=== PATIENT | male | born 1990 | race Caucasian/White ===

== ENCOUNTER 2017-03-27 13:18 | Inpatient (IN) | payer SELFPAY ==
[~2017-03-27] VITALS: Ht 175.3 cm; Wt 75.0 kg
[2017-03-27 12:50] VITALS: BP 142/85; PULSE 56; RESP 13; TEMP 97.6; O2SAT 99
[~2017-03-27 13:18] MED LIST: LACTATED RINGER'S 1000 ML INJ 2,000 ML IV ONE; ONDANSETRON HCL 4 MG/2 ML VIAL IV PUSH ONE; PROPOFOL 200 MG/20 ML AMP IV ONE; ceFAZolin INJ 1,000 MG VIAL IV ONE; ePHEDrine/NS 25 MG/5 ML SYR IV ONE
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
[2017-03-27] MEDS ORDERED: SODIUM CHLORIDE 0.9% FLUSH 10 ML FLUSH IV FLUSH PRN (14:45)
[2017-03-27] MEDS ORDERED: NALOXONE HCL 0.4 MG/ML AMP IV PRN (14:45)
[2017-03-27] MEDS ORDERED: ONDANSETRON HCL 4 MG/2 ML VIAL IVP PRN (14:45)
[2017-03-27] MEDS ORDERED: MAGNESIUM HYDROXIDE SUSP 30 ML CUP PO PRN (14:45)
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
[2017-03-27 14:58] VITALS: BP 133/77; PULSE 77; RESP 19; TEMP 98.5; O2SAT 99
[2017-03-27] MEDS: SODIUM CHLOR 0.9% 1000 ML INJ 1,000 ML IV SCH ×2 (15:00→20:14)
[2017-03-27] MEDS ORDERED: fentaNYL CITRATE 250 MCG/5 ML AMP ONE (15:01)
[2017-03-27] MEDS ORDERED: MIDAZOLAM HCL 2 MG/2 ML VIAL ONE (15:01)
[2017-03-27] MEDS ORDERED: ACETAMINOPHEN 1000 MG/100 ML VIAL IV ONE (15:11)
[2017-03-27] MEDS ORDERED: INSULIN HUMAN REGULAR 1,000 UNITS/10 ML VIAL SQ PRN (15:15)
[2017-03-27] MEDS ORDERED: METOPROLOL TARTRATE 25 MG TAB PO PRN (15:15)
[2017-03-27] MEDS ORDERED: SODIUM CHLORID 0.9% 500 ML IV PRN (15:15)
[2017-03-27] MEDS ORDERED: LACTATED RINGER'S 1000 ML IV PRN (15:15)
[2017-03-27] MEDS ORDERED: POVIDONE IODINE 5% (ANTISEPSIS KIT) 4 APPLICATIONS EACH NARE PRN (15:15)
[2017-03-27] MEDS ORDERED: CHLORHEXIDINE GLUCONATE 2 % 1 PACK (2 CLOTHS) TOPICAL PRN (15:15)
[2017-03-27] MEDS ORDERED: methylPREDNISolone SOD SUCC 40 MG/1 ML VIAL ONE (15:18)
[2017-03-27] MEDS ORDERED: BALANCED SALT SOLN OPHT IRRIG 15 ML BTL ONE (15:49)
[2017-03-27] MEDS ORDERED: TOBRAMYCIN 0.3%/DEXAMETHASONE 0.1% OPHT SUSP 5 ML BTL ONE (15:55)
[2017-03-27] MEDS ORDERED: TOBRAMYCIN SULFATE 0.3% OPTH OINT 3.5 GM TUBE ONE (17:34)
--- NOTE | 2017-03-27 17:50 | PD.OP ---
Operative Report Date of Surgery: Mar 27, 2017 Preoperative Diagnosis: (1) Ruptured globe of left eye Postoperative Diagnosis: (1) Ruptured globe of left eye Procedure: ruptured globe repair left eye Anesthesia: General Surgeon: Julee Soto Loan Manager(s): none Operation and Findings: The patient was consented and taken to the operating room. He was put under general anesthesia and prepped and draped in the usual sterile fashion for ophthalmic surgery. A wire lid speculum was placed in the left eye. There was noted to be an 11 mm full thickness corneal laceration from 3 to 9 o'clock with a completely shallow anterior chamber. A 360 degree conjunctival peritomy was performed to fully explore the eye to make sure the laceration did not extend into the sclera. Tobradex solution was used to irrigate the wound. 14 10-0 nylon interrupted sutured were placed to close the laceration. Ocucoat was placed into the anterior chamber along with BSS to help form it. The wound was found to be watertight. 7-0 Vicryl suture was placed to close the conjunctiva. Tobrex ointment and a patch and shield were placed over the left eye. Patient tolerated the procedure well and was sent to PACU. Julee Soto MD Mar 27, 2017 17:50
--- NOTE | 2017-03-27 17:53 | HHI.PR ---
Subjective Remarks s/p ruptured globe repair of left eye. Pt currently in PACU. Objective Vital Signs Date Time Temp Pulse Resp B/P Pulse Ox O2 Delivery O2 Flow Rate FiO2 03/27/17 14:58 98.5 77 19 133/77 99 03/27/17 12:50 97.6 56 13 142/85 99 Objective Remarks Patch over left eye Assessment and Plan Problem List: (1) Ruptured globe of left eye Status: Acute Plan: s/p ruptured globe repair. Keep eye shield on left eye. IV Vanc/Ancef. Pain control. Pt ok to be discharged in the AM. Follow up at office tomorrow at 1pm. [address] [facility]. [phone]. Julee Soto MD Mar 27, 2017 17:53
[2017-03-27] MEDS ORDERED: DO NOT ADM ANY ANTICOAGULANT DRUGS PRN (18:00)
[2017-03-27] MEDS ORDERED: *morphine SULFATE 8 MG/ML PERIprocedure ONLY ONE (18:22)
[2017-03-27] MEDS: MORPHINE SULFATE 4 MG/ML INJ IV PUSH PRN (20:11)
[2017-03-27] MEDS: DOCUSATE SODIUM 50 MG/SENNA 8.6 MG TAB PO SCH (20:12)
[2017-03-27] MEDS: SODIUM CHLORIDE 0.9% FLUSH 10 ML FLUSH IV FLUSH SCH (20:13)
[2017-03-27 20:30] VITALS: BP 120/63; PULSE 65; RESP 16; TEMP 98.7; O2SAT 97
[2017-03-28] VITALS (10 sets, daily range): BP systolic 121–146; BP diastolic 66–91; PULSE 50–80; RESP 14–20; TEMP 96–99.1; O2SAT 94–100
[2017-03-28] MEDS: MORPHINE SULFATE 4 MG/ML INJ IV PUSH PRN ×5 (00:25→20:37)
[2017-03-28] MEDS: ACETAMINOPHEN 325 MG TAB PO PRN ×2 (02:42→08:02)
[2017-03-28] MEDS: DOCUSATE SODIUM 50 MG/SENNA 8.6 MG TAB PO SCH ×2 (08:03→20:35)
[2017-03-28] MEDS: SODIUM CHLORIDE 0.9% FLUSH 10 ML FLUSH IV FLUSH SCH ×2 (08:03→20:36)
[2017-03-28] MEDS ORDERED: oxyCODONE/ACETAMINOPHEN 5 MG/325 MG TAB PO PRN ×2 (09:30)
--- NOTE | 2017-03-28 10:17 | RADRPT ---
EXAM DATE/TIME: 03/28/2017 10:01 [facility] COMPARISON: No previous studies available for comparison. INDICATIONS : Stroke alert, left sided facial droop and general numbness. RADIATION DOSE: 56.35 CTDIvol (mGy) This report was called to Dr. De Santiago at 10: 10 Given to Stroke nurse at 10 12 MEDICAL HISTORY : Non-responsive. SURGICAL HISTORY : Non-responsive. ENCOUNTER: Initial ACUITY: 1 day PAIN SCALE: Non-responsive LOCATION: Bilateral head TECHNIQUE: Multiple contiguous axial images were obtained of the head. Using automated exposure control and adj ustment of the mA and/or kV according to patient size, radiation dose was kept as low as reasonably a chievable to obtain optimal diagnostic quality images. FINDINGS: CEREBRUM: The ventricles are normal for age. No evidence of midline shift, mass lesion, hemorrhage or acute in farction. No extra-axial fluid collections are seen. POSTERIOR FOSSA: The cerebellum and brainstem are intact. The 4th ventricle is midline. The cerebellopontine angle i s unremarkable. EXTRACRANIAL: The visualized portion of the orbits is intact. SKULL: The calvaria is intact. No evidence of skull fracture. CONCLUSION: Negative. MRI would be of benefit.. Shabbir Garza MD FACR on March 28, 2017 at 10:10 Board Certified Radiologist. This report was verified electronically.
[2017-03-28 10:28] LABS: I-STAT POTASSIUM 3.8 MMOL/L (3.5-4.9); I-STAT SODIUM 137 MMOL/L (138-146)
[2017-03-28 10:29] LABS: AUTOMATED NEUTROPHIL # 9.5 TH/MM3 (1.8-7.7); BASOPHIL # 0.1 TH/MM3 (0-0.2); EOSINOPHIL % 0.3 % (0.0-4.0); HEMATOCRIT 44.7 % (39.0-51.0); HEMO FLAGS DIFF FINAL; LYMPH % 28.3 % (9.0-44.0); LYMPHOCYTE # 4.1 TH/MM3 (1.0-4.8); MEAN CELL VOLUME 90.9 FL (80.0-100.0); MEAN CORPUSCULAR HEMOGLOBIN 31.2 PG (27.0-34.0); MEAN CORPUSCULAR HGB CONC 34.3 % (32.0-36.0); MONO % 5.3 % (0.0-8.0); NEUT % 65.1 % (16.0-70.0); PLATELET COUNT 221 TH/MM3 (150-450); RED BLOOD COUNT 4.91 MIL/MM3 (4.50-5.90); RED CELL DISTRIBUTION WIDTH 13.7 % (11.6-17.2); WHITE BLOOD COUNT 14.6 TH/MM3 (4.0-11.0)
[2017-03-28 10:37] LABS: APTT (PATIENT) 29.7 SEC (24.3-30.1); INTERNATIONAL NORMALIZED RATIO 1.1 RATIO
[2017-03-28 10:45] LABS: CREATINE KINASE 126 U/L (39-308)
[2017-03-28] MEDS: SODIUM CHLOR 0.9% 1000 ML INJ 1,000 ML IV SCH (11:00)
--- NOTE | 2017-03-28 11:00 | EKG ---
Date Performed: 03/28/2017 Time Performed: 10:19:11 PTAGE: 27 years EKG: SINUS BRADYCARDIA WITH SHORT IA INTERVAL BORDERLINE ECG NO PREVIOUS TRACING DOCTOR: Moris Appiah Interpretating Date/Time 03/28/2017 10:58:28
--- NOTE | 2017-03-28 11:06 | HHI.PR ---
Subjective Remarks Stroke alert was called I was at patient's bedside during the stroke alert. Per nurse patient has been in pain and she gave him his Percocet then patient passed out for second then woke up with questionable left-sided weakness with left facial droop. Patient told me that he feels tingling all over his body and weakness all over his body. He denies any focal neurological deficits. Denied any headache. Denies any visual changes or nausea/ vomiting. His mom is at the bedside and stated that patient has been in severe pain and has been convulsing because of the pain. She stated that during his convulsive like activity patient was telling his mom that the pain was not controlled. His mother stated that patient was in pain all night and that the morphine knocked him out but then he will wake up in extreme pain. When I interviewed patient he was very anxious. Mother's upset because pain not controlled and stated that she thinks all this happened because of pain. No family history of early stroke. Objective Vitals Vital Signs Date Time Temp Pulse Resp B/P Pulse Ox O2 Delivery O2 Flow Rate FiO2 03/28/17 09:54 100 2.00 03/28/17 09:54 100 Nasal Cannula 2.00 03/28/17 09:02 18 03/28/17 08:00 99.0 56 14 121/71 98 03/28/17 03:40 97.0 55 16 127/85 99 03/28/17 00:10 97.8 57 15 136/66 97 03/27/17 20:30 98.7 65 16 120/63 97 03/27/17 18:30 76 16 130/69 96 Room Air 03/27/17 18:15 77 15 117/58 97 Room Air 03/27/17 18:00 71 14 137/67 98 Room Air 03/27/17 17:48 97.8 70 14 145/74 100 Simple Mask 10 03/27/17 14:58 98.5 77 19 133/77 99 03/27/17 12:50 97.6 56 13 142/85 99 I/O 03/27/17 03/27/17 03/27/17 03/28/17 03/28/17 03/28/17 07:00 15:00 23:00 07:00 15:00 23:00 Intake Total 1840 ml 1069 ml Output Total 0 ml 500 ml Balance 1840 ml 569 ml Intake Oral 240 ml 240 ml IV Total 300 ml 829 ml Other 1300 ml Output Urine Total 0 ml 500 ml # Bowel Movements 0 0 Result Diagram: 03/28/17 1012 Objective Remarks GENERAL: in NAD SKIN: Warm and dry. HEAD: Normocephalic. EYES: Left eye had an eye patch on it. Patient did not want us to touch the eye patch due to pain. He did have a slight left facial droop when I asked the smile he wouldn't smile. When I asked him if he is not small because the pain he not his head yes. NECK: Supple, trachea midline. No JVD or lymphadenopathy. CARDIOVASCULAR: Regular rate and rhythm without murmurs, gallops, or rubs. RESPIRATORY: Breath sounds equal bilaterally. No accessory muscle use. GASTROINTESTINAL: Abdomen soft, non-tender, nondistended. MUSCULOSKELETAL: No cyanosis, or edema. Initially patient had no effort when I told patient that he needs to put effort into examination because I need to determine if he has stroke he had 5 out of 5 upper and lower she restraint. Sensation grossly intact. BACK: Nontender without obvious deformity. No CVA tenderness. NEURO: AAO X 3. Sensation grossly intact. Unable to assess coordination due to patient being very anxious. Patient went down for a stat CT scan. Medications and IVs Current Medications Morphine Sulfate 2 mg 2 mg Q3H PRN IV PUSH pain 1-10 Last administered on 03:22; Start 03/27/17 at 15:00 Sodium Chloride (NS 1000 ml Inj) 1,000 ml @ 100 mls/hr Q10H IV Last administered on 03/27/17 20:14; Start 03/27/17 at 15:00; Stop 03/28/17 at 10:25; Status DC Sodium Chloride (NS Flush) 2 ml UNSCH PRN IV FLUSH FLUSH AFTER USING IV ACCESS ; Start 03/27/17 at 14:45 Sodium Chloride (NS Flush) 2 ml BID IV FLUSH Last administered on 03/27/17 20: 13; Start 03/27/17 at 21:00 Acetaminophen (Tylenol) 650 mg Q4H PRN PO TEMP > 100.4 Last administered on 03/28 08:02; Start 03/27/17 at 14:45 Ondansetron HCl (Zofran Inj) 4 mg Q6H PRN IVP NAUSEA OR VOMITING; Start at 14:45 Naloxone HCl (Narcan Inj) 0.4 mg UNSCH PRN IV SEE LABEL COMMENTS; Start at 14:45 Senna/Docusate Sodium (Ellen-Colace) 1 tab BID PO Last administered on 03/28/17 08:03; Start 03/27/17 at 21:00 Magnesium Hydroxide (Milk Of Magnesia Liq) 30 ml Q12H PRN PO MILD - MODERATE CONSTIPATION Last administered on 03/27/17 20:12; Start 03/27/17 at 14:45 Midazolam HCl (Versed Inj) 2 mg STK-MED ONCE .ROUTE ; Start 03/27/17 at 15:01; Stop 03/27/17 at 15:02; Status DC Fentanyl Citrate 250 mcg 250 mcg STK-MED ONCE .ROUTE ; Start 03/27/17 at 15:01; Stop 03/27/17 at 15:02; Status DC Lactated Ringer's 1,000 ml @ 30 mls/hr Q24H PRN IV SEE LABEL COMMENTS; Start at 15:15; Stop 03/28/17 at 10:25; Status DC Sodium Chloride (NS 500 ml Inj) 500 ml @ 30 mls/hr [id number] PRN IV SEE LABEL COMMENTS; Start 03/27/17 at 15:15; Stop 03/30/17 at 15:14 Metoprolol Tartrate (Lopressor) 25 mg TANK FURNACE OPERATOR PRN PO SEE LABEL COMMENTS; Start 03/27/17 at 15:15; Stop 03/30/17 at 15:14 Povidone Iodine (Betadine 5% Antisepsis Kit) 1 applic TANK FURNACE OPERATOR PRN EACH NARE SEE LABEL COMMENTS; Start 03/27/17 at 15:15; Stop 03/30/17 at 15:14 Chlorhexidine Gluconate (Chlorhexidine 2% Cloth) 3 pack TANK FURNACE OPERATOR PRN TOPICAL SEE LABEL COMMENTS; Start 03/27/17 at 15:15; Stop 03/30/17 at 15:14 Insulin Human Regular (NovoLIN R INJ) See Protocol Table ... TANK FURNACE OPERATOR PRN SQ SEE PROTOCOL TABLE; Start 03/27/17 at 15:15; Stop 03/30/17 at 15:14 Acetaminophen (Ofirmev Inj) 1,000 mg STK-MED ONCE IV ; Start 03/27/17 at 15:11; Stop 03/27/17 at 15:12; Status DC Methylprednisolone Sodium Succinate (SoluMEDROL INJ) 40 mg STK-MED ONCE .ROUTE ; Start 03/27/17 at 15:18; Stop 03/27/17 at 15:19; Status DC Balanced Salt Solution (Bss Opth Soln) 30 applic STK-MED ONCE .ROUTE Last administered on 03/27/17 15:49; Start 03/27/17 at 15:49; Stop 03/27/17 at 15:50; Status DC Tobramycin/ Dexamethasone (Tobradex Opth Susp) 100 drop STK-MED ONCE .ROUTE Last administered on 03/27/17 16:04; Start 03/27/17 at 15:55; Stop 03/27/17 at 15: 56; Status DC Tobramycin Sulfate (Tobrex 0.3% Opth Oint) 3.5 applic STK-MED ONCE .ROUTE Last administered on 03/27/17 17:36; Start 03/27/17 at 17:34; Stop 03/27/17 at 17:35; Status DC Miscellaneous Information ALL NURSING DEPARTME... UNSCH PRN .XX SEE LABEL COMMENTS; Start 03/27/17 at 18:00; Stop 03/28/17 at 17:59 Morphine Sulfate (*morphine INJ PERIprocedure ONLY) 8 mg STK-MED ONCE .ROUTE Last administered on 03/27/17 18:23; Start 03/27/17 at 18:22; Stop 03/27/17 at 18: 23; Status DC Oxycodone/ Acetaminophen (Percocet 5-325 Mg) 1 tab Q6H PRN PO pain 1-6; Start 03/28/17 at 09:30 Oxycodone/ Acetaminophen 2 tab 2 tab Q6H PRN PO pain 7-10 Last administered on 03/28/17 09:37; Start 03/28/17 at 09:30 Sodium Chloride (NS 1000 ml Inj) 1,000 ml @ 70 mls/hr [id number] IV ; Start at 11:00 A/P Assessment and Plan 27-year-old male with foreign object to his left eye Syncope/questionable neurological symptoms 03/28 -Symptoms seems more due to hyperventilation secondary to uncontrolled pain. -Stroke alert was called. Dealt with neurologist Dr. Reyes. Patient had a stat CT scan of the head that was negative. Dr. Garza asked for stat MRI in which he spoke to Dr. Reyes I d/w Dr. Reyes over phone and on by patient's room. will wait for MRI. Labs were obtained and reviewed mild leukocytosis most likely secondary to to an inflammatory response from surgery. -We'll transfer patient to neurology floor with telemetry. -Treatment pending MRI. Uncontrol left eye pain -Secondary to recent surgery. -Due to recent event will need to hold off on pain medication because this will present proper examination by causing excessive sedation. -once cleared of neurological etiology can resume pain medication. Will adjust accordingly. Ruptured globe of the left eye -Found on CT scan. -s/p ruptured globe repair. -Patient was scheduled for follow-up appointment with Dr. Soto today at 1:00 PM. Patient's nurse was told to call Dr. Soto to notify Dr. Soto of the event and that he will require continual hospitalization. DVTs prophylaxis -low risk none indicated. Discharge Planning Pending stat MRI. Patient will require continual hospitalization due to recent events. Adrienne Hernandez MD Mar 28, 2017 11:06
[2017-03-28] MEDS ORDERED: GADODIAMIDE PF 287 MG/ML 20 ML VIAL (for RAD MRI) IV ONE (12:31)
--- NOTE | 2017-03-28 12:32 | RADRPT ---
EXAM DATE/TIME: 03/28/2017 10:40 [facility] COMPARISON: No previous studies available for comparison. INDICATIONS : Stroke alert. Bilateral extremity weakness with left sided facial droop. CONTRAST: 20 cc Omniscan (gadodiamide) IV MEDICAL HISTORY : None. SURGICAL HISTORY : Left eye debriedment. ENCOUNTER: Initial ACUITY: 1 day PAIN SCORE: 8/10 LOCATION: Left eye Percent stenosis is calculated using the diameter of the stenotic region over the diameter of the nor mal distal internal carotid artery. TECHNIQUE: Bolus infused MRA of the extracranial circulation was performed using a neurovascular coil. Post pro cessing was performed including rotating subvolume maximum intensity projections of each carotid blake ry, rotating full volume maximum intensity projections of both carotid arteries, sagittal and coronal sliding thin slab reformations of each carotid artery, and left oblique sliding thin slab reformatio n through the aortic arch to include the origin of the arch branch vessels. FINDINGS: AORTIC ARCH: There is a three vessel origin of the great vessels from the aorta. No evidence of ostial narrowing. RIGHT CAROTID: The common carotid artery is intact. The carotid bulb has a normal configuration without ulceration or narrowing. The internal carotid artery lumen is smooth without stenosis. The external carotid ar serg is intact. LEFT CAROTID: The common carotid artery is intact. The carotid bulb has a normal configuration without ulceration or narrowing. The internal carotid artery lumen is smooth without stenosis. The external carotid ar serg is intact. VERTEBRALS: The vertebral arteries have a symmetric diameter. No stenotic lesions are seen. CONCLUSION: Negative for hemodynamically significant stenosis. Shabbir Garza MD FACR on March 28, 2017 at 12:29 Board Certified Radiologist. This report was verified electronically.
--- NOTE | 2017-03-28 12:32 | RADRPT ---
EXAM DATE/TIME: 03/28/2017 10:40 [facility] COMPARISON: No previous studies available for comparison. INDICATIONS : Stroke alert. Bilateral extremity weakness with left sided facial droop. MEDICAL HISTORY : None. SURGICAL HISTORY : Left eye debriedment. ENCOUNTER: Initial ACUITY: 1 day PAIN SCORE: 8/10 LOCATION: Left eye Please note a normal MRA of the brain does not entirely exclude the possibility of a small aneurysm, nor the possibility of distal intracranial vessel disease. TECHNIQUE: 3D time of flight MRA was performed. Source images, multiplanar STS MIP, and 3D volume MIP reconstru ctions were reviewed. FINDINGS: There is excellent visualization of the major intracranial arteries out to the second-order branch ve ssels. There is no evidence for aneurysm, vessel truncation or stenosis, and no evidence for vascula r malformation. CONCLUSION: Negative for aneurysm or major branch vessel occlusion.. Shabbir Garza MD FACR on March 28, 2017 at 12:30 Board Certified Radiologist. This report was verified electronically.
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
--- NOTE | 2017-03-28 13:12 | RADRPT ---
EXAM DATE/TIME: 03/28/2017 10:40 [place] COMPARISON: No previous studies available for comparison. INDICATIONS : Stroke alert. Bilateral extremity weakness with left sided facial droop. MEDICAL HISTORY : None. SURGICAL HISTORY : Left eye debridement ENCOUNTER: Initial ACUITY: 1 day PAIN SCORE: 8/10 LOCATION: Left eye TECHNIQUE: Multiplanar, multisequence MRI of the brain was performed without contrast. FINDINGS: There is no restricted diffusion evident. Minimal periventricular white matter changes are evident. I do not see evidence for significant demyelinating process. Ventricular size is appropriate. There are no extraaxial fluid collections appreciated. Posterior fossa is unremarkable. There is no parenchymal hemorrhage. The orbits and nasal sinuses are unremarkable. There is no mastoid disease. CONCLUSION: Negative MRI of the brain. Shabbir Garza MD FACR on March 28, 2017 at 12:19 Board Certified Radiologist. This report was verified electronically.
[2017-03-28] MEDS ORDERED: ACETAMINOPHEN/HYDROcodone 325 MG/5 MG TAB PO PRN (13:15)
[2017-03-28] MEDS: MORPHINE SULFATE 15 MG CONTROLLED RELEASE TAB PO SCH ×2 (15:11→20:36)
[2017-03-28] MEDS ORDERED: ZOLPIDEM TARTRATE 10 MG TAB PO PRN (16:30)
--- NOTE | 2017-03-28 20:05 | HHI.PR ---
Subjective Remarks 1 day s/p ruptured globe repair of left eye. Pt states that pain has been uncontrolled. Sharp and throbbing pain kept him up all night despite his pain meds. Stroke alert called earlier today - CT/MRI normal. Objective Vital Signs Date Time Temp Pulse Resp B/P Pulse Ox O2 Delivery O2 Flow Rate FiO2 03/28/17 16:16 16 03/28/17 15:45 99.1 78 20 125/82 96 03/28/17 12:18 18 03/28/17 12:00 96.6 50 14 139/91 99 03/28/17 09:54 100 2.00 03/28/17 09:54 100 Nasal Cannula 2.00 03/28/17 09:51 97.1 65 18 145/79 100 03/28/17 09:42 96.0 64 18 146/73 100 03/28/17 09:02 18 03/28/17 08:00 99.0 56 14 121/71 98 03/28/17 03:40 97.0 55 16 127/85 99 03/28/17 00:10 97.8 57 15 136/66 97 03/27/17 20:30 98.7 65 16 120/63 97 I/O 03/27/17 03/27/17 03/27/17 03/28/17 03/28/17 03/28/17 07:00 15:00 23:00 07:00 15:00 23:00 Intake Total 1840 ml 1069 ml Output Total 0 ml 500 ml Balance 1840 ml 569 ml Intake Oral 240 ml 240 ml IV Total 300 ml 829 ml Other 1300 ml Output Urine Total 0 ml 500 ml # Bowel Movements 0 0 Result Diagram: 03/28/17 1012 Objective Remarks Va sc at near OS HM EOM full OU CVF full OD, unable OS Pupils 2-1 OD, no view OS IOP OS 32 mm Hg Anterior exam OD - normal eyelid, C/S W&Q, K clear, AC deep, pupil round, lens clear OS - eyelid edema, ANTONIO with sutures intact, corneal sutures intact - [place] neg , AC deep Assessment and Plan Problem List: (1) Ruptured globe of left eye Status: Acute Plan: 1 day s/p ruptured globe repair. Keep eye shield on left eye. IV Moxifloxacin daily. Diamox 500mg q4h for increased IOP. Pain control. Start Vigamox QID OS, Prednisolone QID OS. Pt ok to be discharged in the AM. Follow up at office tomorrow at 1pm. [address] [facility]. [phone]. Julee Soto MD Mar 28, 2017 20:05
[2017-03-28] MEDS: MOXIFLOXACIN 0.5% OPHT SOLN 3 ML BTL LEFT EYE SCH (20:35)
[2017-03-28] MEDS: prednisoLONE ACETATE 1% OPHT SUSP 5 ML BTL LEFT EYE SCH (20:35)
[2017-03-28] MEDS: acetaZOLAMIDE SEQUELS 500 MG SUSTAINED RELEASE CAP PO SCH (20:36)
[2017-03-28] MEDS ORDERED: MOXIFLOXACIN 400 MG PREMIX 250 ML IV SCH (21:00)
[2017-03-28] MEDS: ACETAMINOPHEN/HYDROcodone 325 MG/5 MG TAB PO PRN (22:10)
[2017-03-29] MEDS: MORPHINE SULFATE 4 MG/ML INJ IV PUSH PRN ×2 (00:30→11:33)
[2017-03-29] MEDS: acetaZOLAMIDE SEQUELS 500 MG SUSTAINED RELEASE CAP PO SCH ×2 (00:35→03:50)
[2017-03-29] MEDS: SODIUM CHLOR 0.9% 1000 ML INJ 1,000 ML IV SCH (00:37)
[2017-03-29 00:45] VITALS: BP 120/88; PULSE 91; RESP 19; TEMP 97.9; O2SAT 95
[2017-03-29] MEDS: ACETAMINOPHEN/HYDROcodone 325 MG/5 MG TAB PO PRN ×2 (03:51→08:17)
[2017-03-29 05:15] VITALS: BP 115/68; PULSE 88; RESP 18; TEMP 98; O2SAT 100
[2017-03-29 08:00] VITALS: PULSE 50
[2017-03-29] MEDS: SODIUM CHLORIDE 0.9% FLUSH 10 ML FLUSH IV FLUSH SCH (08:15)
[2017-03-29] MEDS: MORPHINE SULFATE 15 MG CONTROLLED RELEASE TAB PO SCH (08:16)
[2017-03-29] MEDS: prednisoLONE ACETATE 1% OPHT SUSP 5 ML BTL LEFT EYE SCH ×2 (08:17→11:34)
[2017-03-29] MEDS: DOCUSATE SODIUM 50 MG/SENNA 8.6 MG TAB PO SCH (08:17)
[2017-03-29] MEDS: MOXIFLOXACIN 0.5% OPHT SOLN 3 ML BTL LEFT EYE SCH ×2 (08:17→11:35)
--- NOTE | 2017-03-29 08:22 | HHI.PR ---
Subjective Subjective Comments No acute neuro events reported headache/left eye pain little less severe mri/a normal ophtalmo management, will follow prn Active Medications Current Medications Medications (Trade) Dose Ordered Sig/Genaro Route Start Time Stop Time Status Last Admin (NS Flush) 2 ml UNSCH PRN IV FLUSH 03/27/17 14:45 (NS Flush) 2 ml BID IV FLUSH 03/27/17 21:00 03/28/17 20:36 (Tylenol) 650 mg Q4H PRN PO 03/27/17 14:45 03/28/17 08:02 (Zofran Inj) 4 mg Q6H PRN IVP 03/27/17 14:45 (Narcan Inj) 0.4 mg UNSCH PRN IV 03/27/17 14:45 (Ellen-Colace) 1 tab BID PO 03/27/17 21:00 03/29/17 08:17 Magnesium Hydroxide 30 ml 30 ml Q12H PRN PO 03/27/17 14:45 03/27/17 20:12 Sodium Chloride 500 ml @ 30 mls/hr [id number] PRN IV 03/27/17 15:15 03/30/17 15:14 (NS 1000 ml Inj) 1,000 ml @ 70 mls/hr [id number] IV 03/28/17 11:00 03/29/17 00:37 ([place] 5-325 Mg) 1 tab Q4H PRN PO 03/28/17 13:15 ([place] 5-325 Mg) 2 tab Q4H PRN PO 03/28/17 13:15 03/29/17 08:17 (Oramorph Sr) 15 mg Q12HR PO 03/28/17 14:45 03/29/17 08:16 (Ambien) 10 mg HS PRN PO 03/28/17 16:30 03/28/17 17:16 (Vigamox 0.5% Opht Soln) 1 drop QID LEFT EYE 03/28/17 21:00 03/29/17 08:17 Prednisolone Acetate 1 drop 1 drop QID LEFT EYE 03/28/17 21:00 03/29/17 08:17 (Avelox 400 Mg Premix) 250 ml @ 250 mls/hr Q24H IV 03/28/17 21:00 03/28/17 20:35 (Morphine Inj) 2 mg Q4HR PRN IV PUSH 03/29/17 00:27 03/29/17 00:30 (Diamox Sequels) 500 mg BID PO 03/29/17 09:00 03/29/17 08:17 Allergies Allergies Coded Allergies Cipro (Verified Allergy, Severe, 03/27/17) Penicillin (Verified Allergy, Mild, 03/27/17) Exam I&O / VS 03/28/17 03/28/17 03/29/17 15:00 23:00 07:00 Intake Total 975 ml Balance 975 ml Intake Oral 975 ml # Voids 1 # Bowel Movements 0 Vital Signs Date Time Temp Pulse Resp B/P Pulse Ox O2 Delivery O2 Flow Rate FiO2 03/29/17 00:45 97.9 91 19 120/88 95 03/28/17 23:00 68 03/28/17 21:00 98.0 80 17 124/74 94 03/28/17 16:16 16 03/28/17 15:45 99.1 78 20 125/82 96 03/28/17 12:18 18 03/28/17 12:00 96.6 50 14 139/91 99 03/28/17 09:54 100 2.00 03/28/17 09:54 100 Nasal Cannula 2.00 03/28/17 09:51 97.1 65 18 145/79 100 03/28/17 09:42 96.0 64 18 146/73 100 03/28/17 09:02 18 Objective Micro and Labs Laboratory Tests Test 03/28/17 03/28/17 10:12 12:52 White Blood Count 14.6 Red Blood Count 4.91 Hemoglobin 15.3 Bedside Hemoglobin 15.6 Hematocrit 44.7 Bedside Hematocrit 46.0 Mean Corpuscular Volume 90.9 Mean Corpuscular Hemoglobin 31.2 Mean Corpuscular Hemoglobin 34.3 Concent Red Cell Distribution Width 13.7 Platelet Count 221 Mean Platelet Volume 9.0 Neutrophils (%) (Auto) 65.1 Lymphocytes (%) (Auto) 28.3 Monocytes (%) (Auto) 5.3 Eosinophils (%) (Auto) 0.3 Basophils (%) (Auto) 1.0 Neutrophils # (Auto) 9.5 Lymphocytes # (Auto) 4.1 Monocytes # (Auto) 0.8 Eosinophils # (Auto) 0.0 Basophils # (Auto) 0.1 CBC Comment DIFF FINAL Differential Comment Prothrombin Time 12.0 Prothromb Time International 1.1 Ratio Activated Partial 29.7 Thromboplast Time Fibrinogen 270 Bedside Sodium 137 Bedside Potassium 3.8 Bedside Chloride 101 Bedside Blood Urea Nitrogen 12 Bedside Creatinine 1.1 Bedside Glucose 89 Total Creatine Kinase 126 Troponin I LESS THAN 0.02 Blood Type A POSITIVE A POSITIVE Antibody Screen NEGATIVE Cheyenne Castillo MD Mar 29, 2017 08:22
[2017-03-29 08:29] VITALS: BP 127/68; PULSE 59; RESP 18; TEMP 97.4; O2SAT 100
[2017-03-29] MEDS ORDERED: acetaZOLAMIDE SEQUELS 500 MG SUSTAINED RELEASE CAP PO SCH (09:00)
[2017-03-29] MEDS ORDERED: PILL SPLITTER OTHER PRN (09:45)
--- NOTE | 2017-03-29 09:57 | HHI.PR ---
Subjective Remarks Follow-up for intractable pain of the left eye. Patient continues to be very tearful due to the pain. He stated that pain medication helped a little bit but he continues have pain. Patient stated that his pain is 8 out of 10 right now. I spoke to patient regards to his pain and discharge. He stated that he will speak to his mom in regards to being discharged today. Patient denied any episodes of passing out, headache, or focal neurological deficit. Objective Vitals Vital Signs Date Time Temp Pulse Resp B/P Pulse Ox O2 Delivery O2 Flow Rate FiO2 03/29/17 08:29 97.4 59 18 127/68 100 03/29/17 08:00 50 03/29/17 05:15 98.0 88 18 115/68 100 03/29/17 00:45 97.9 91 19 120/88 95 03/28/17 23:00 68 03/28/17 21:00 98.0 80 17 124/74 94 03/28/17 16:16 16 03/28/17 15:45 99.1 78 20 125/82 96 03/28/17 12:18 18 03/28/17 12:00 96.6 50 14 139/91 99 I/O 03/28/17 03/28/17 03/28/17 03/29/17 03/29/17 03/29/17 07:00 15:00 23:00 07:00 15:00 23:00 Intake Total 1069 ml 975 ml 1000 ml Output Total 500 ml Balance 569 ml 975 ml 1000 ml Intake Oral 240 ml 975 ml 1000 ml IV Total 829 ml Output Urine Total 500 ml # Voids 1 3 # Bowel Movements 0 0 0 Result Diagram: 03/28/17 1012 Objective Remarks GENERAL: in NAD SKIN: Warm and dry. HEAD: Normocephalic. EYES: Left eye had an eye patch on it. Patient did not want us to touch the eye patch due to pain. No left facial droop noted. NECK: Supple, trachea midline. No JVD or lymphadenopathy. CARDIOVASCULAR: Regular rate and rhythm without murmurs, gallops, or rubs. RESPIRATORY: Breath sounds equal bilaterally. No accessory muscle use. GASTROINTESTINAL: Abdomen soft, non-tender, nondistended. MUSCULOSKELETAL: No cyanosis, or edema. 5 out of 5 lower and upper strandy strength. BACK: Nontender without obvious deformity. No CVA tenderness. NEURO: AAO X 3. Sensation grossly intact. Coordination is grossly intact. Medications and IVs Current Medications Morphine Sulfate 2 mg 2 mg Q3H PRN IV PUSH pain 1-10 Last administered on 12:13; Start 03/27/17 at 15:00; Stop 03/28/17 at 16:26; Status DC Sodium Chloride (NS 1000 ml Inj) 1,000 ml @ 100 mls/hr Q10H IV Last administered on 03/27/17 20:14; Start 03/27/17 at 15:00; Stop 03/28/17 at 10:25; Status DC Sodium Chloride (NS Flush) 2 ml UNSCH PRN IV FLUSH FLUSH AFTER USING IV ACCESS ; Start 03/27/17 at 14:45 Sodium Chloride (NS Flush) 2 ml BID IV FLUSH Last administered on 03/28/17 20: 36; Start 03/27/17 at 21:00 Acetaminophen (Tylenol) 650 mg Q4H PRN PO TEMP > 100.4 Last administered on 03/28 08:02; Start 03/27/17 at 14:45 Ondansetron HCl (Zofran Inj) 4 mg Q6H PRN IVP NAUSEA OR VOMITING; Start at 14:45 Naloxone HCl (Narcan Inj) 0.4 mg UNSCH PRN IV SEE LABEL COMMENTS; Start at 14:45 Senna/Docusate Sodium (Ellen-Colace) 1 tab BID PO Last administered on 03/29/17 08:17; Start 03/27/17 at 21:00 Magnesium Hydroxide (Milk Of Magnesia Liq) 30 ml Q12H PRN PO MILD - MODERATE CONSTIPATION Last administered on 03/27/17 20:12; Start 03/27/17 at 14:45 Midazolam HCl (Versed Inj) 2 mg STK-MED ONCE .ROUTE ; Start 03/27/17 at 15:01; Stop 03/27/17 at 15:02; Status DC Fentanyl Citrate 250 mcg 250 mcg STK-MED ONCE .ROUTE ; Start 03/27/17 at 15:01; Stop 03/27/17 at 15:02; Status DC Lactated Ringer's 1,000 ml @ 30 mls/hr Q24H PRN IV SEE LABEL COMMENTS; Start at 15:15; Stop 03/28/17 at 10:25; Status DC Sodium Chloride (NS 500 ml Inj) 500 ml @ 30 mls/hr [id number] PRN IV SEE LABEL COMMENTS; Start 03/27/17 at 15:15; Stop 03/30/17 at 15:14 Metoprolol Tartrate (Lopressor) 25 mg TAXI PROPRIETOR PRN PO SEE LABEL COMMENTS; Start 03/27/17 at 15:15; Stop 03/30/17 at 15:14 Povidone Iodine (Betadine 5% Antisepsis Kit) 1 applic TAXI PROPRIETOR PRN EACH NARE SEE LABEL COMMENTS; Start 03/27/17 at 15:15; Stop 03/30/17 at 15:14 Chlorhexidine Gluconate (Chlorhexidine 2% Cloth) 3 pack TAXI PROPRIETOR PRN TOPICAL SEE LABEL COMMENTS; Start 03/27/17 at 15:15; Stop 03/30/17 at 15:14 Insulin Human Regular (NovoLIN R INJ) See Protocol Table ... TAXI PROPRIETOR PRN SQ SEE PROTOCOL TABLE; Start 03/27/17 at 15:15; Stop 03/30/17 at 15:14 Acetaminophen (Ofirmev Inj) 1,000 mg STK-MED ONCE IV ; Start 03/27/17 at 15:11; Stop 03/27/17 at 15:12; Status DC Methylprednisolone Sodium Succinate (SoluMEDROL INJ) 40 mg STK-MED ONCE .ROUTE ; Start 03/27/17 at 15:18; Stop 03/27/17 at 15:19; Status DC Balanced Salt Solution (Bss Opth Soln) 30 applic STK-MED ONCE .ROUTE Last administered on 03/27/17 15:49; Start 03/27/17 at 15:49; Stop 03/27/17 at 15:50; Status DC Tobramycin/ Dexamethasone (Tobradex Opth Susp) 100 drop STK-MED ONCE .ROUTE Last administered on 03/27/17 16:04; Start 03/27/17 at 15:55; Stop 03/27/17 at 15: 56; Status DC Tobramycin Sulfate (Tobrex 0.3% Opth Oint) 3.5 applic STK-MED ONCE .ROUTE Last administered on 03/27/17 17:36; Start 03/27/17 at 17:34; Stop 03/27/17 at 17:35; Status DC Miscellaneous Information ALL NURSING DEPARTME... UNSCH PRN .XX SEE LABEL COMMENTS; Start 03/27/17 at 18:00; Stop 03/28/17 at 17:59; Status DC Morphine Sulfate (*morphine INJ PERIprocedure ONLY) 8 mg STK-MED ONCE .ROUTE Last administered on 03/27/17 18:23; Start 03/27/17 at 18:22; Stop 03/27/17 at 18: 23; Status DC Oxycodone/ Acetaminophen (Percocet 5-325 Mg) 1 tab Q6H PRN PO pain 1-6; Start 03/28/17 at 09:30; Stop 03/28/17 at 13:04; Status DC Oxycodone/ Acetaminophen 2 tab 2 tab Q6H PRN PO pain 7-10 Last administered on 03/28/17 09:37; Start 03/28/17 at 09:30; Stop 03/28/17 at 13:04; Status DC Sodium Chloride (NS 1000 ml Inj) 1,000 ml @ 70 mls/hr [id number] IV Last administered on 03/29/17 00:37; Start 03/28/17 at 11:00 Gadodiamide (Omniscan Pf Inj) 20 ml STK-MED ONCE IV Last administered on 12:31; Start 03/28/17 at 12:31; Stop 03/28/17 at 12:32; Status DC Acetaminophen/ Hydrocodone Bitart ([place] 5-325 Mg) 1 tab Q4H PRN PO pain 1-6; Start 03/28/17 at 13:15 Acetaminophen/ Hydrocodone Bitart ([place] 5-325 Mg) 2 tab Q4H PRN PO pain 7-10 Last administered on 03/29/17 08:17; Start 03/28/17 at 13:15 Morphine Sulfate (Oramorph Sr) 15 mg Q12HR PO Last administered on 03/29/17 08: 16; Start 03/28/17 at 14:45 Morphine Sulfate (Morphine Inj) 4 mg Q2HR PRN IV PUSH pain 1-10 Last administered on 03/28/17 20:37; Start 03/28/17 at 18:00; Stop 03/29/17 at 00:30; Status DC Acetazolamide (Diamox Sequels) 500 mg Q4HR PO Last administered on 03/29/17 03 :50; Start 03/28/17 at 20:00; Stop 03/29/17 at 07:41; Status DC Zolpidem Tartrate (Ambien) 10 mg HS PRN PO INSOMNIA Last administered on 17:16; Start 03/28/17 at 16:30 Moxifloxacin HCl (Vigamox 0.5% Opht Soln) 1 drop QID LEFT EYE Last administered on 03/29/17 08:17; Start 03/28/17 at 21:00 Prednisolone Acetate 1 drop 1 drop QID LEFT EYE Last administered on 03/29/17 08:17; Start 03/28/17 at 21:00 Moxifloxacin HCl (Avelox 400 Mg Premix) 250 ml @ 250 mls/hr Q24H IV Last administered on 03/28/17 20:35; Start 03/28/17 at 21:00 Morphine Sulfate (Morphine Inj) 2 mg Q4HR PRN IV PUSH BREAKTHROUGH PAIN Last administered on 03/29/17 00:30; Start 03/29/17 at 00:27 Acetazolamide (Diamox Sequels) 500 mg BID PO Last administered on 03/29/17 08: 17; Start 03/29/17 at 09:00 Hydromorphone HCl (Dilaudid) 1 mg ONCE ONCE PO Last administered on 03/29/17 09:43; Start 03/29/17 at 10:00; Stop 03/29/17 at 10:01 Miscellaneous (Pill Splitter) 1 ea UNSCH PRN OTHER SEE LABEL COMMENTS; Start at 09:45 A/P Assessment and Plan 27-year-old male with foreign object to his left eye Syncope/questionable neurological symptoms on 03/28 -Symptoms seems more due to hyperventilation secondary to uncontrolled pain. -Stroke alert was called Dr. Castillo consulted. CT scan of the head, MRI of the head, MR a of the head all negative. -Most likely this is all secondary to pain. He has been asymptomatic since that one episode. Intractable left eye pain -Secondary to recent surgery. -Patient on [place] and Oramorph with IV morphine if not controlled or medication. Pain continues to be uncontrolled. We will try Dilaudid by mouth. Ruptured globe of the left eye -Found on CT scan. -s/p ruptured globe repair. -Patient was seen by Dr. Soto yesterday in which she added IV moxiflacin, Diamox 500 mg every 4 hours due to increase intraocular pressure, Vigamox 4 times a day OS, prednisolone OS 4 times a day. DVTs prophylaxis -low risk none indicated. Discharge Planning Patient continues to have uncontrolled pain. He stated that he would decide today if he can make the appointment with Dr. Soto. If not nurse to put out a call to Dr. Soto that patient is still hospitalized. Adrienne Hernandez MD Mar 29, 2017 09:57
[2017-03-29] MEDS ORDERED: HYDROmorphone HCL 2 MG TAB PO ONE (10:00)
[2017-03-29] MEDS ORDERED: PREDNISOLONE ACETATE 1% LEFT EYE (12:53)
[2017-03-29] MEDS ORDERED: VIGA0.5D LEFT EYE (12:53)
[2017-03-29] MEDS ORDERED: MORPHINE PO (12:53)
[2017-03-29] MEDS ORDERED: DILA2TAB2 PO (12:53)
[2017-03-29] MEDS ORDERED: ACETA500 PO (12:53)
--- NOTE | 2017-03-29 12:55 | HHI.DCPOC ---
Discharge Care Plan Diagnosis: (1) Ruptured globe of left eye Goals to Promote Your Health * To prevent worsening of your condition and complications * To maintain your health at the optimal level Directions to Meet Your Goals Take your medications as prescribed Follow your dietary instruction Follow activity as directed Keep your appointments as scheduled Take your immunizations and boosters as scheduled If your symptoms worsen call your PCP, if no PCP go to Urgent Care Center or Emergency Room Smoking is Dangerous to Your Health. Avoid second hand smoke Call the 24-hour hour crisis hotline for domestic abuse at Adrienne Hernandez MD Mar 29, 2017 12:55
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
[2017-04-01] MEDS ORDERED: AMBI10TA PO (09:11)
[2017-04-01] MEDS ORDERED: [UNRECOGNIZED DRUG - OTHER] LEFT EYE (09:11)
[2017-04-01] MEDS ORDERED: DIFL0.0512 LEFT EYE (09:11)
[2017-04-01] MEDS ORDERED: AUGM875T3 PO (09:11)
[2017-04-01] MEDS ORDERED: MORP1TAB24 PO (09:11)
[2017-04-08] MEDS ORDERED: PRED1SUS LEFT EYE (10:55)
[2017-04-08] MEDS ORDERED: BRIN1SUS2 LEFT EYE (10:55)
[2017-04-15] MEDS ORDERED: NEOM0.1S4 LEFT EYE (09:47)
[2017-04-15] MEDS ORDERED: PRED1SUS6 LEFT EYE (09:47)
[2017-04-15] MEDS ORDERED: BRIN1SUS2 LEFT EYE (09:47)
== END 2017-03-29 13:23 | disposition home or self-care (01) | DRG 117 ==
LOC: N06A 13:19 → N05B 03-28 15:32
PROVIDERS: ADMIT Family Medicine; ATTEND Family Medicine
PROC: 08Q9XZZ Repair Left Cornea, External Approach (ICD-10-PCS; principal; 2017-03-27 15:23)
DX: S05.32XA Ocular laceration without prolapse or loss of intraocular tissue, left eye, initial encounter (principal); R55 Syncope and collapse; H57.12 Ocular pain, left eye; V49.88XA Car occupant (driver) (passenger) injured in other specified transport accidents, initial encounter; Y93.89 Activity, other specified; Y92.410 Unspecified street and highway as the place of occurrence of the external cause; Y99.9 Unspecified external cause status; Z88.0 Allergy status to penicillin; Z80.0 Family history of malignant neoplasm of digestive organs
CPT/HCPCS: 70450; 70544; 70548; 70551; 82435; 82550; 82565; 82947; 82948; 84132; 84295; 84484; 84520; 85025; 85384; 85610; 85730; 86850; 86900; 86901; 93005; A9579; J0131; J0690; J2250; J2270; J2280; J2405; J2920; J3010; J7030; J7120